=== PATIENT | female | born 1980 | race Asian ===

== ENCOUNTER 2019-02-28 15:09 | Outpatient (CLI) | payer BC ==
--- NOTE | 2019-02-28 15:36 | ULT ---
BILATERAL RENAL ULTRASOUND HISTORY: Chronic renal disease FINDINGS: The right kidney measures 10.8 cm in length and the left kidney measures 11.4 cm in length. The right kidney is suboptimally evaluated due to bowel gas and patient's body habitus. No definite focal mass or hydronephrosis seen on either side. The urinary bladder is unremarkable. IMPRESSION: No definite significant renal abnormalities are seen.
== END 2019-02-28 15:10 | disposition home or self-care (01) ==
LOC: BICULT 15:09
PROVIDERS: ATTEND Internal Medicine Nephrology
DX: N18.3 Chronic kidney disease, stage 3 (moderate) (principal)
CPT/HCPCS: 76770